=== PATIENT | male | born 1970 | race Caucasian/White ===

== ENCOUNTER 2017-11-23 13:34 | Emergency (ER) | payer SELFPAY ==
[2017-11-23 13:56] VITALS: BP 143/84; PULSE 67; TEMP 98.5
--- NOTE | 2017-11-23 14:38 | PDOC ---
History of Present Illness - General Chief Complaint: Rash Stated Complaint: RASH Time Seen by Provider: 11/23/17 14:29 History Source: Patient Exam Limitations: No Limitations - History of Present Illness Associated Symptoms: reports: rash. denies: chest pain, cough, diaphoresis, fever/chills Past History - Travel Traveled outside of the country in the last 30 days: No Close contact w/someone who was outside of country & ill: No - Past Medical History Allergies/Adverse Reactions: Allergies Allergy/AdvReac Type Severity Reaction Status Date / Time No Known Allergies Allergy Verified 11/23/17 13:56 Home Medications: Ambulatory Orders Diphenhydramine HCl 25 mg PO ACDIN 7 Days #21 capsule 11/23/17 Triamcinolone 0.025% Ointment [Aristocort 0.025% Ointment -] 1 applic TP BID 7 Days #60 g 11/23/17 COPD: No - Surgical History Abdominal Surgery: (HERNIS REPAIR) - Suicide/Smoking/Psychosocial Hx Smoking History: Never smoked Hx Alcohol Use: Yes (OCCASIONALLY) Drug/Substance Use Hx: No Review of Systems - Review of Systems Is the patient limited Irish proficient: No Constitutional: No: Chills, Fever Cardiac (ROS): No: Chest Pain, Palpitations (b/l pruritic in arm X 3 weeks) Integumentary: Yes: Pruritus, Rash. No: Dryness, Erythema, Flushing, Lesions, Sweating *Physical Exam - Vital Signs Last Vital Signs Temp Pulse Resp BP Pulse Ox 98.5 F 67 16 143/84 98 11/23/17 13:53 11/23/17 13:53 11/23/17 13:53 11/23/17 13:53 11/23/17 13:53 - Physical Exam General Appearance: Yes: Nourished Respiratory/Chest: positive: Lungs Clear, Normal Breath Sounds Cardiovascular: positive: Regular Rhythm, Regular Rate, S1, S2 Integumentary: positive: Normal Color, Other (b/l tiny papules noted in arm, no hives). negative: Erythema, Diaphoresis, Petechiae, Ecchymosis Neurologic: positive: wealth management manager II-XII NML intact, Fully Oriented, Alert Medical Decision Making - Medical Decision Making 11/23/17 14:42 47y/o M with b/l pruritic in b/l arms X 3wks, denies f/c + tiny papules noted Rx for traimicionlone and bendaryl derm f/u *DC/Admit/Observation/Transfer Diagnosis at time of Disposition: Rash - Discharge Dispostion Disposition: HOME Condition at time of disposition: Good Decision to Admit order: No - Prescriptions Prescriptions: Diphenhydramine HCl 25 mg PO ACDIN 7 Days #21 capsule Triamcinolone 0.025% Ointment [Aristocort 0.025% Ointment -] 1 applic TP BID 7 Days #60 g - Referrals Referrals: Lupis Baker MD [Staff Physician] - 1 week - Patient Instructions Printed Discharge Instructions: Contact Dermatitis Additional Instructions: I discussed the physical exam findings, ancillary test results and final diagnoses with the patient. I answered all of the patient's questions. The patient was satisfied with the care received and felt comfortable with the discharge plan and treatment plan. The patient will call their primary care physician within 24 hours to arrange follow-up and will return to the Emergency Department with any new, persistant or worsening symptoms. - Post Discharge Activity
== END 2017-11-23 14:39 | disposition home or self-care (01) ==
LOC: JERFT 13:34
DX: L25.9 Unspecified contact dermatitis, unspecified cause (principal)
CPT/HCPCS: 99281-25

== ENCOUNTER 2018-05-02 11:28 | Emergency (ER) | payer OTHER ==
[2018-05-02 11:52] VITALS: BP 127/82; PULSE 73; TEMP 98.2; BMI 29.0
--- NOTE | 2018-05-02 12:10 | PDOC ---
History of Present Illness - General Chief Complaint: Pain, Acute Stated Complaint: LEFT SIDE PAIN Time Seen by Provider: 05/02/18 11:57 History Source: Patient - History of Present Illness Timing/Duration: reports: intermittent Past History - Past Medical History Allergies/Adverse Reactions: Allergies Allergy/AdvReac Type Severity Reaction Status Date / Time No Known Allergies Allergy Verified 05/02/18 11:48 Home Medications: Ambulatory Orders Diphenhydramine HCl 25 mg PO ACDIN 7 Days #21 capsule 11/23/17 Triamcinolone 0.025% Ointment [Aristocort 0.025% Ointment -] 1 applic TP BID 7 Days #60 g 11/23/17 COPD: No Dialysis: No - Surgical History Abdominal Surgery: (HERNIA REPAIR) - Immunization History Immunization Up to Date: Yes - Suicide/Smoking/Psychosocial Hx Smoking History: Never smoked Information on smoking cessation initiated: No Hx Alcohol Use: No Drug/Substance Use Hx: No Review of Systems - Review of Systems Constitutional: No: Chills, Fever ABD/GI: No: Constipated, Diarrhea, Nausea, Vomiting : No: Burning, Dysuria, Discharge, Flank Pain, Hematuria, Pain, Testicular Mass, Testicular Swelling, Lesions, Testicular Pain *Physical Exam - Vital Signs Last Vital Signs Temp Pulse Resp BP Pulse Ox 98.2 F 73 18 127/82 97 05/02/18 11:49 05/02/18 11:49 05/02/18 11:49 05/02/18 11:49 05/02/18 11:49 - Physical Exam General Appearance: Yes: Appropriately Dressed. No: Apparent Distress HEENT: positive: Normal Voice Neck: positive: Supple Respiratory/Chest: negative: Respiratory Distress Gastrointestinal/Abdominal: positive: Tender (minimal ttp to LLQ), Soft Male Genitalia: positive: normal genitalia. negative: testicular tenderness, testicular mass Musculoskeletal: negative: CVA Tenderness Integumentary: positive: Dry, Warm Neurologic: positive: Fully Oriented, Alert, Normal Mood/Affect Moderate Sedation - Procedure Monitoring Vital Signs: Procedure Monitoring Vital Signs Temperature 98.2 F 05/02/18 11:49 Pulse Rate 73 05/02/18 11:49 Respiratory Rate 18 05/02/18 11:49 Blood Pressure 127/82 05/02/18 11:49 O2 Sat by Pulse Oximetry (%) 97 05/02/18 11:49 ED Treatment Course - LABORATORY CBC & Chemistry Diagram: 05/02/18 13:10 05/02/18 12:10 Medical Decision Making - Medical Decision Making 05/02/18 12:08 47 yo M, s/p b/l orchipexy in childhood, p/w mild LLQ pain x 3 days, intermittent and unable to describe. Pt states "pain is not bad" but not getting better so decided to come in for eval. Denies any change in bowel movements, nausea, vomiting, fever, chills, dysuria, hematuria, penile discharge , testicular pain, swelling. No history of similar pain See exam LLQ pain R/o diverticulitis, unlikely renal colic or torsion -labs -CT 05/02/18 16:[address] unremarkable. Patient currently pain-free w/ benign abd on reassessment. Stable for discharge to follow-up with PMD. Reasons to return to ER discussed with patient *DC/Admit/Observation/Transfer Diagnosis at time of Disposition: Abdominal pain Qualifiers: Abdominal location: left lower quadrant Qualified Code(s): R10.32 - Left lower quadrant pain - Discharge Dispostion Disposition: HOME Condition at time of disposition: Good - Referrals - Patient Instructions Printed Discharge Instructions: Acute Abdominal Pain Additional Instructions: The cause of your pain is unclear at this time as your labs and CAT scan were all normal. If the pain persist and/or worsen, return to ED, otherwise follow-up with your doctor - Post Discharge Activity
[2018-05-02 13:43] LABS: URINE APPEARANCE CLEAR; URINE BILIRUBIN NEGATIVE (<2.0 mg/dL); URINE COLOR YELLOW; URINE GLUCOSE (UA) NEGATIVE (NEGATIVE); URINE KETONE NEGATIVE (NEGATIVE); URINE LEUK ESTERASE NEGATIVE (NEGATIVE); URINE NITRITE NEGATIVE (NEGATIVE); URINE PROTEIN NEGATIVE (NEGATIVE); URINE UROBILINOGEN NEGATIVE mg/dL (0.2-1.0)
[2018-05-02 14:14] LABS: ALBUMIN 4.3 g/dl (3.4-5.0); ALK PHOS 76 U/L (45-117); ANION GAP 8 MMOL/L (8-16); BILIRUBIN,TOTAL 0.9 mg/dL (0.2-1); BLOOD UREA NITROGEN 14 mg/dL (7-18); CALCIUM 9.1 mg/dL (8.5-10.1); CHLORIDE 105 mmol/L (98-107); CO2 25 mmol/L (21-32); CREATININE 0.6 mg/dL (0.55-1.3); GLUCOSE,RANDOM 94 mg/dL (74-106); SGOT/AST 26 U/L (15-37); SGPT/ALT 46 U/L (13-61); SODIUM 137 mmol/L (136-145); TOT PROT 7.9 g/dl (6.4-8.2)
[2018-05-02 15:33] LABS: EOS % 0.9 % (0-4.5); HEMOGLOBIN 14.9 GM/dL (11.7-16.9); LYMPH % 15.4 % (8-40); MCH 31.6 pg (25.7-33.7); MCHC 35.4 g/dl (32.0-35.9); MEAN CELL VOLUME 89.1 fl (80-96); MEAN PLT VOLUME 10.6 fl (7.5-11.1); MONO % 5.5 % (3.8-10.2); NEUT % 77.2 % (42.8-82.8); PLATELET COUNT 191 K/MM3 (134-434); RBC 4.72 M/mm3 (4.00-5.60); RDW 13.3 % (11.9-15.9)
[2018-05-02 15:39] LABS: WHITE BLOOD COUNT 8.1 K/mm3 (4.0-10.0)
== END 2018-05-02 17:40 | disposition home or self-care (01) ==
LOC: JER 11:28
DX: R10.32 Left lower quadrant pain (principal)
CPT/HCPCS: 36415; 74176-TC; 80053; 81003; 85025; 99282-25

== ENCOUNTER 2020-06-24 18:23 | Emergency (ER) | payer SELFPAY ==
[2020-06-24 18:35] VITALS: BP 141/89; PULSE 74; TEMP 98.2; BMI 29.0
[2020-06-24] MEDS ORDERED: TETRACAINE 0.5% HCL 0.6ML DROPPER.BOTTLE OS ONE (18:52)
[2020-06-24] MEDS ORDERED: FLUORESCEIN NA 1 EA STRIP OS ONE (18:53)
[2020-06-24] MEDS ORDERED: FLUORESCEIN NA 1 EA STRIP ONE (18:55)
[2020-06-24] MEDS ORDERED: TETRACAINE 0.5% OPHTH SOLN 2 ML BOTTLE ONE (18:55)
[2020-06-24] MEDS ORDERED: ERYTHROMYCIN 0.5% OPHTHALMIC OINTMENT 3.5 GM TUBE OS ONE (19:06)
[2020-06-24] MEDS ORDERED: ERYTHROMYCIN 0.5% OPHTHALMIC OINTMENT 3.5 GM TUBE ONE (19:16)
== END 2020-06-24 19:25 | disposition home or self-care (01) ==
LOC: JERFT 18:23
DX: S05.02XA Injury of conjunctiva and corneal abrasion without foreign body, left eye, initial encounter (principal)
CPT/HCPCS: 99283-25